=== PATIENT | male | born 1955 | race Caucasian/White ===

== ENCOUNTER 2021-08-06 08:51 | Day surgery (SDC) | payer MEDICARE ==
[~2021-08-06 08:51] MED LIST: Bupivacaine 0.5% 50 ML MDV ONE
[2021-08-06] MEDS ORDERED: Nozin Nasal Sanitizer NASBOTH SCH (09:00)
[2021-08-06] MEDS ORDERED: Lactated Ringers 1,000 ML IV SCH (09:00)
[2021-08-06] MEDS ORDERED: ceFAZolin 2 GM in Premix Bag 1 BAG IV ONE (09:15)
[2021-08-06] MEDS ORDERED: Tranexamic Acid 660 MG in Sodium Chloride 0.9% 50 ML IV ONE (09:30)
[2021-08-06] MEDS ORDERED: fentaNYL 100 MCG/2 ML SDV ONE (09:41)
[2021-08-06] MEDS ORDERED: Midazolam 1 MG/ML 2 ML SDV ONE (09:41)
[2021-08-06] MEDS ORDERED: Propofol 200 MG/20 ML SDV ONE ×2 (09:41→10:46)
[2021-08-06 09:55] LABS: CORONAVIRUS COVID-19 NAA NEGATIVE (NEGATIVE)
[2021-08-06] MEDS ORDERED: Lactated Ringers 1,000 ML ONE (10:39)
[2021-08-06] MEDS ORDERED: Ondansetron 4 MG/2 ML SDV IVPUSH PRN (11:41)
[2021-08-06] MEDS ORDERED: traMADol 50 MG Tab PO PRN (11:41)
[2021-08-06] MEDS ORDERED: Sodium Chloride 0.9% 1,000 ML IV SCH (11:45)
[2021-08-06] MEDS ORDERED: ceFAZolin 1 GM in Sodium Chloride 0.9% 50 ML IV SCH (11:45)
[2021-08-06] MEDS ORDERED: oxyCODONE 5 MG Tab PO PRN (11:46)
[2021-08-06] MEDS ORDERED: HYDROmorphone 0.5 MG/0.5 ML Syringe IVPUSH PRN (11:47)
[2021-08-06] MEDS: Ketorolac 30 MG/ML SDV IVPUSH SCH ×2 (13:19→20:26)
[2021-08-06] MEDS: Acetaminophen 325 MG Tab PO SCH ×2 (15:11→21:56)
[2021-08-06] MEDS: ceFAZolin 1 GM in Premix Bag 1 BAG IV SCH (18:18)
[2021-08-06] MEDS: Nozin Nasal Sanitizer NASBOTH SCH (20:22)
[2021-08-06] MEDS: Docusate Sodium 100 MG Cap PO SCH (20:23)
[2021-08-06] MEDS: busPIRone 10 MG, busPIRone 5 MG PO SCH ×2 (20:25)
[2021-08-06] MEDS ORDERED: BUSPIRONE HCL 15 MG PO SCH (21:00)
[2021-08-06] MEDS ORDERED: Non-Formulary Medication 1 Each (Quetiapine Fumarate [Quetiapine Fumarate] 400 MG Tablet) PO SCH (21:00)
[2021-08-06] MEDS ORDERED: QUETIAPINE PO SCH ×2 (21:00)
[2021-08-07] MEDS: ceFAZolin 1 GM in Premix Bag 1 BAG IV SCH (03:32)
[2021-08-07] MEDS: Acetaminophen 325 MG Tab PO SCH (03:32)
[2021-08-07] MEDS ORDERED: QUEtiapine 25 MG Tab PO SCH (08:00)
[2021-08-07] MEDS: Nozin Nasal Sanitizer NASBOTH SCH (08:50)
[2021-08-07] MEDS: busPIRone 10 MG, busPIRone 5 MG PO SCH ×2 (08:51)
[2021-08-07] MEDS ORDERED: SERTRALINE HCL 100 MG PO SCH (09:00)
[2021-08-07] MEDS ORDERED: Celecoxib 200 MG Cap PO SCH (09:00)
[2021-08-07] MEDS ORDERED: Non-Formulary Medication 1 Each (Lovastatin [Lovastatin] 40 MG Tablet) PO SCH (09:00)
[2021-08-07] MEDS ORDERED: Enoxaparin 30 MG/0.3 ML Syringe SUBCUT SCH (09:00)
[2021-08-07] MEDS: Docusate Sodium 100 MG Cap PO SCH (09:00)
[2021-08-07] MEDS ORDERED: Sertraline 50 MG Tab PO SCH (09:00)
[2021-08-07] MEDS ORDERED: atorvaSTATin 10 MG Tab PO SCH (09:00)
[2021-08-07] MEDS ORDERED: QUETIAPINE FUMARATE 150 MG PO SCH (09:00)
== END 2021-08-07 10:05 | disposition home or self-care (01) ==
LOC: JP.SDS 08:51 → JP.2SS 11:41 → JP.SDS 08-07 10:05
PROVIDERS: ATTEND Specialist
DX: M16.12 Unilateral primary osteoarthritis, left hip (principal); Z87.891 Personal history of nicotine dependence; E78.00 Pure hypercholesterolemia, unspecified; F41.9 Anxiety disorder, unspecified; F32.A Depression, unspecified; Z20.822 Contact with and (suspected) exposure to COVID-19; Z01.812 Encounter for preprocedural laboratory examination
CPT/HCPCS: 0241U; 36415; 72170; 72170-26; 80053; 85027; 93005; 97110-GP; 97161-GP; 97530-GP; A9270-GY; C1713; C1776; J0690; J1650; J1885; J2250; J2704; J3010; J3490; J7030; J7120

== ENCOUNTER 2022-11-22 08:01 | Day surgery (SDC) | payer MEDICARE ==
[~2022-11-22 08:01] MED LIST changes: -Bupivacaine 0.5% 50 ML MDV ONE; +Sodium Chloride 0.9% 1,000 ML IV SCH
[2022-11-22] MEDS ORDERED: Sodium Chloride 0.9% 1,000 ML IV SCH (08:30)
[2022-11-22] MEDS ORDERED: Midazolam 1 MG/ML 2 ML SDV ONE (09:04)
[2022-11-22] MEDS ORDERED: Propofol 200 MG/20 ML SDV ONE (09:04)
[2022-11-22] MEDS ORDERED: fentaNYL 50 MCG/ML SDV ONE (09:04)
== END 2022-11-22 11:15 | disposition home or self-care (01) ==
LOC: JP.SDS 08:01
PROVIDERS: ATTEND Internal Medicine
DX: K62.1 Rectal polyp (principal); K63.5 Polyp of colon; K31.89 Other diseases of stomach and duodenum; I10 Essential (primary) hypertension; F41.9 Anxiety disorder, unspecified; F31.9 Bipolar disorder, unspecified; E78.00 Pure hypercholesterolemia, unspecified; Z86.010 Personal history of colon polyps
CPT/HCPCS: 45380; 88305; J2250; J2704; J3010; J7030

== ENCOUNTER → 2023-06-05 | Day surgery (SDC) | payer MEDICARE ==
[~2023-06-05] MED LIST changes: +Dexamethasone 4 MG/ML SDV ONE; +Glycopyrrolate 0.2 MG/ML 5 ML MDV ONE; +Ketorolac 30 MG/ML SDV ONE; +Labetalol 20 MG/4 ML Syringe ONE; +Lactated Ringers 1,000 ML ONE; +Neostigmine Methylsulfate 10 MG/10 ML MDV ONE; +Ondansetron 4 MG/2 ML SDV ONE; +Propofol 200 MG/20 ML SDV ONE; +Rocuronium 50 MG/5 ML Vial ONE; -Sodium Chloride 0.9% 1,000 ML IV SCH; +Succinylcholine 200 MG/10 ML MDV ONE; +fentaNYL 250 MCG/5 ML SDV ONE
[2023-06-05] MEDS: Sodium Chloride 0.9% 1,000 ML IV SCH (08:39)
[2023-06-05 08:40] LABS: HEMATOCRIT 43.6 % (38.4-49.7); HEMOGLOBIN 14.7 g/dL (12.9-16.9); MEAN CORPUSCULAR HEMOGLOBIN 30.9 pg (31.6-35.5); MEAN CORPUSCULAR HGB CONC 33.7 g/dL (31.6-35.5); MEAN CORPUSCULAR VOLUME 91.8 fL (81.4-99.0); RED BLOOD CELL COUNT 4.75 M/uL (4.14-5.76); WHITE BLOOD CELL COUNT,WBC 9.6 K/uL (3.2-11.0)
[2023-06-05 09:01] LABS: ALANINE AMINOTRANSFERASE,ALT 23 U/L (12-78); ALBUMIN 3.5 g/dL (3.4-5.0); ALKALINE PHOSPHATASE 64 U/L (46-116); ASPARTATE AMNIOTRANSFERASE,AST 18 U/L (15-37); BILIRUBIN TOTAL 0.4 mg/dL (0.2-1.0); BLOOD UREA NITROGEN,BUN 15 mg/dL (7-18); CALCIUM 8.3 mg/dL (8.5-10.1); CARBON DIOXIDE,CO2 27 mmol/L (21-32); CHLORIDE,CL 106 mmol/L (100-108); CREATININE 0.9 mg/dL (0.8-1.3); EST CRCL DRUG DOSING (CG) 79.65 mL/min; ESTIMATED GFR 94 mL/min (>60); GLUCOSE RANDOM 90 mg/dL (74-106); POTASSIUM,K 3.8 mmol/L (3.6-5.2); PROTEIN TOTAL,TP 6.9 g/dL (6.4-8.2); SODIUM,NA 139 mmol/L (140-148)
[2023-06-05 09:17] LABS: ANION GAP 9.8 mmol/L (5.0-14.0)
[2023-06-05] MEDS: metroNIDAZOLE/Normal Saline 500 MG in Premix Bag 1 BAG IV ONE (09:35)
[2023-06-05] MEDS: ceFAZolin 2 GM in Premix Bag 1 BAG IV ONE (09:35)
[2023-06-05] MEDS: Ropivacaine 34 ML, dexAMETHasone 8 MG, EPINEPHrine 0.4 MG, Sodium Chloride 0.9% 43.6 ML NERVRT SCH (09:35)
[2023-06-05] MEDS: Bupivacaine 0.5%/EPINEPHrine 1:200,000 50 ML MDV ONE (10:12)
[2023-06-05] MEDS: Acetaminophen/HYDROcodone 325-5 MG Tab PO ONE (13:13)
== END ==
LOC: JP.SDS 08:07
PROVIDERS: ATTEND Surgery
DX: K40.00 Bilateral inguinal hernia, with obstruction, without gangrene, not specified as recurrent (principal); D17.6 Benign lipomatous neoplasm of spermatic cord; I10 Essential (primary) hypertension; E78.5 Hyperlipidemia, unspecified; F41.9 Anxiety disorder, unspecified; F31.9 Bipolar disorder, unspecified; Z87.891 Personal history of nicotine dependence; Z79.899 Other long term (current) drug therapy
CPT/HCPCS: 36415; 49650; 64486; 64488; 80053; 85027; A9270; C1713; C1781; J0171; J0330; J0690; J1100; J1836; J1885; J1920; J2405; J2704; J2710; J2795; J3010; J3490; J7030; J7120

== ENCOUNTER 2024-07-28 22:03 | Emergency (ER) | payer MEDICARE ==
[2024-07-28 22:21] LABS: BASOPHILS ABSOLUTE AUTO 0.04 K/uL (0.00-0.10); BASOPHILS PERCENT AUTO 0.5 % (0.1-1.3); EOSINOPHILS ABSOLUTE AUTO 0.13 K/uL (0.00-0.40); EOSINOPHILS PERCENT AUTO 1.7 % (0.0-5.4); HEMATOCRIT 44.5 % (38.4-49.7); IMMATURE GRAN ABSOLUTE AUTO 0.03 K/uL (0.00-0.23); IMMATURE GRAN PERCENT AUTO 0.4 % (0.0-0.7); LYMPHOCYTES ABSOLUTE AUTO 0.87 K/uL (0.8-3.3); LYMPHOCYTES PERCENT AUTO 11.6 % (11.4-47.7); MEAN CORPUSCULAR HEMOGLOBIN 31.4 pg (31.6-35.5); MEAN CORPUSCULAR HGB CONC 33.7 g/dL (31.6-35.5); MEAN CORPUSCULAR VOLUME 93.3 fL (81.4-99.0); MONOCYTES ABSOLUTE AUTO 0.67 K/uL (0.20-0.90); MONOCYTES PERCENT AUTO 8.9 % (3.3-12.6); NEUTROPHILS ABSOLUTE AUTO 5.77 K/uL (1.0-7.6); NEUTROPHILS PERCENT AUTO 76.9 % (40.0-78.1); PLATELET COUNT,PLT 226 K/uL (130-375); RED BLOOD CELL COUNT 4.77 M/uL (4.14-5.76); WHITE BLOOD CELL COUNT,WBC 7.5 K/uL (3.2-11.0)
[2024-07-28 22:43] LABS: A/G RATIO 1.2 (1.2-2.2); ALANINE AMINOTRANSFERASE,ALT 23 U/L (12-78); ALBUMIN 4.1 g/dL (3.4-5.0); ALKALINE PHOSPHATASE 94 U/L (46-116); ANION GAP 12.8 mmol/L (5.0-14.0); ASPARTATE AMNIOTRANSFERASE,AST 32 U/L (15-37); BILIRUBIN TOTAL 0.7 mg/dL (0.2-1.0); BLOOD UREA NITROGEN,BUN 35 mg/dL (7-18); CALCIUM 9.7 mg/dL (8.5-10.1); CARBON DIOXIDE,CO2 25 mmol/L (21-32); CHLORIDE,CL 105 mmol/L (100-108); CREATININE 1.5 mg/dL (0.8-1.3); ESTIMATED GFR 50 mL/min (>60); GLUCOSE RANDOM 145 mg/dL (74-106); POTASSIUM,K 3.9 mmol/L (3.6-5.2); PROTEIN TOTAL,TP 7.4 g/dL (6.4-8.2); SODIUM,NA 143 mmol/L (140-148)
[2024-07-28] MEDS: LORazepam 2 MG/ML SDV IVPUSH ONE (22:45)
[2024-07-28] MEDS: Ondansetron 4 MG/2 ML SDV IVPUSH ONE (22:45)
[2024-07-28 23:15] LABS: BASE EXCESS VENOUS 0.6 mm/L; BICARBONATE,VENOUS 25.3 mmol/L; CARBOXYHEMOGLOBIN 1.2 % (0.0-1.6); METHEMOGLOBIN 0.6 %; O2 SATURATION VENOUS 76.4; PH,VENOUS 7.388 (7.350-7.450); PO2 VENOUS 45.9 mm/Hg; TOTAL HEMOGLOBIN 15.2 g/dL (13.5-18.0)
[2024-07-28] MEDS: Haloperidol Lactate 5 MG/ML SDV IVPUSH ONE (23:15)
[2024-07-28] MEDS: diphenhydrAMINE 50 MG/ML SDV IVPUSH ONE (23:15)
[2024-07-28] MEDS: Iopamidol 612 MG/ML 100 ML Bottle IV SCH (23:50)
[2024-07-28] MEDS: Sodium Chloride 0.9% 100 ML IV SCH (23:50)
[2024-07-28] MEDS: Sodium Chloride 0.9% 10 ML Syringe FLUSH PRN (23:50)
[2024-07-29 09:11] LABS: AMPHETAMINES SCREEN, URINE PRESUMPTIVE POSITIVE (NEGATIVE); METHAMPHETAMINES SCREEN, URINE PRESUMPTIVE POSITIVE (NEGATIVE)
[2024-07-29 09:12] LABS: APPEARANCE,URINE TURBID (CLEAR); BARBITURATE SCREEN,URINE NEGATIVE (NEGATIVE); BENZODIAZEPINES SCREEN,URINE PRESUMPTIVE POSITIVE (NEGATIVE); BILIRUBIN,URINE NEGATIVE (NEGATIVE); COLOR,URINE YELLOW (YELLOW); GLUCOSE,URINE NEGATIVE (NEGATIVE); KETONES,URINE 15 mg/dL (NEGATIVE); LEUKOCYTE ESTERASE,URINE MODERATE (NEGATIVE); METHADONE SCREEN, URINE NEGATIVE (NEGATIVE); NITRITE,URINE POSITIVE (NEGATIVE); OCCULT BLOOD,URINE TRACE-INTACT (NEGATIVE); OXYCODONE SCREEN,URINE NEGATIVE (NEGATIVE); PH,URINE 5.5 (5.0-8.0); PROPOXYPHENE SCREEN,URINE NEGATIVE (NEGATIVE); PROTEIN,URINE NEGATIVE (NEGATIVE); THC SCREEN,URINE 50 NG/ML PRESUMPTIVE POSITIVE (NEGATIVE); UROBILINOGEN,URINE 0.2 EU/dL (0.2-1.0)
[2024-07-29 09:14] LABS: AMORPHOUS SEDIMENT,URINE RARE; BACTERIA,URINE MANY; EPITHELIAL CELLS,URINE NOT SEEN; MUCUS,URINE NOT SEEN; WBC,URINE 50-75 (0-5)
[2024-07-29] MEDS: Ciprofloxacin 500 MG Tab PO ONE (11:05)
== END 2024-07-29 14:39 | disposition home or self-care (01) ==
LOC: JP.ED 22:03
DX: F15.10 Other stimulant abuse, uncomplicated (principal); F12.10 Cannabis abuse, uncomplicated; E78.00 Pure hypercholesterolemia, unspecified; I25.10 Atherosclerotic heart disease of native coronary artery without angina pectoris; I25.2 Old myocardial infarction; Z79.899 Other long term (current) drug therapy
CPT/HCPCS: 36415; 70450; 71260; 74177; 80053; 80305; 80307; 81001; 82803; 83605; 84484; 85025; 86140; 87086; 87088; 87186; 93005; 93010; 96374; 96375; 99285; A9270; J1200; J1630; J2060; J2405; Q9967